=== PATIENT | female | born 2000 | race Two or more races ===

== ENCOUNTER 2025-02-18 20:18 | Emergency (ER) | payer MEDICAID, OTHER ==
[~2025-02-18] VITALS: Ht 162.6 cm; Wt 56.9 kg
[2025-02-18 21:04] VITALS: BP 122/76; PULSE 80; RESP 18; TEMP 98.7; O2SAT 98
[2025-02-18] MEDS: LET TOPICAL SOLN 5 ML TOP ONE (21:04)
[2025-02-18] MEDS ORDERED: DOXY100C4 PO (21:29)
--- NOTE | 2025-02-18 21:30 | ED.PDOC ---
History of Present Illness(SKN HPI Comments PT PRESENTED TO ED FOR LEFT POSTERIOR EAR SWELLING S/P EAR PIERCING X1-2 WEEKS AGO. REPORTS HEADACHE. DENIES FEVER, CHILLS, NAUSEA, OR VOMITING. 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 Information Source: Patient Mode of Arrival: Ambulatory Past Medical History PAST MEDICAL HISTORY: Denies Surgical History: Denies all surgeries APPLICATION SUPPORT LEAD History: No Pertinent APPLICATION SUPPORT LEAD History Family History Family History: Unknown Social History Smoker: Non-Smoker Alcohol: Denies ETOH Use Drugs: Denies Drug Use All Other Systems: Reviewed and Negative (see hpi) Physical Exam General Appearance: No Apparent Distress, Normal HEENT: Pharynx Normal, TMs Normal Neck: Full Range of Motion, Non-Tender Respiratory: Lungs Clear, No Respiratory Distress, Normal Breath Sounds Cardiovascular: No Murmur, Normal Peripheral Pulses, Regular Rate/Rhythm Breast Exam: Deferred Gastrointestinal: Non Tender, Soft Genitalia: Deferred Pelvic: Deferred Rectal: Deferred Extremities: Normal range of motion Musculoskeletal : Apperance: Normal Neurologic: Alert, No Motor Deficits, Normal Affect, Normal Mood, No Sensory Deficits Cerebellar Function: Normal Reflexes: NOT DONE Skin: Dry, Normal Color, Warm, Wounds (SIZE LESION BEHIND LEFT EARLOBE) Lymphatic: No Adenopathy Was a procedure done? Was a procedure done?: Yes Sedation Sedation?: No Informed consent obtained: Yes Incision and Drainage Incision and Drainage: Abscess Location BEHIND LEFT EARLOBE Anesthetic: Other (LET) Preparation: Betadine Incision and Wound: Pus, Blood Informed consent obtained: Yes Risks/benefits/alt described: Yes Notes PATIENT TOLERATED WELL MINIMAL BLOOD LOSS Differential Diagnosis (INTG) Differential Diagnosis: Cellulitis, Hematoma, Puncture Wound Differential Diagnosis: Abscess X-Ray, Labs, Meds, VS Vital Signs Date Time Temp Pulse Resp B/P (MAP) Pulse Ox O2 Delivery O2 Flow Rate FiO2 02/18/25 21:04 98.7 80 18 122/76 (91) 98 98.7 02/18/25 21:04 80 18 98 Room Air 02/18/25 20:19 98.1 87 16 124/90 98 98.1 Current Medications Medications (Trade) Dose Ordered Sig/Elissa Route Start Time Stop Time Status Last Admin Tetracaine/ Epinephrine/ Lidocaine 5 ml ONCE ONCE TOP 02/18/25 21:00 02/18/25 21:01 DC 02/18/25 21:04 Doxycycline Monohydrate (Vibramycin Tablet) 100 mg ONCE ONCE PO 02/18/25 21:45 02/18/25 21:42 DC 02/18/25 21:40 X-Ray, Labs, Meds, VS Comment SEE PROCEDURE NOTE Script trial of antibiotics . Advised to take medication as prescribed side effects discussed. Advised to follow up with his PCP in two days, urgent care, or back in the ER for wound re-evaluation. Advised to keep dressing on, and clean change twice daily. Patient was also advised to return to the ER for increasing pain, numbness, weakness, swelling, fever or chills. Patient indicates understanding and agrees with discharge plan of care. Time of 1ST Reevaluation: 20:23 Reevaluation 1ST: Unchanged Time of 2ND Reevaluation: 21:30 Reevaluation 2ND: Improved Patient Education/Counseling: Diagnosis, Treatment, Need For Follow Up Family Education/Counseling: No Family Present SEPSIS Sepsis Screen Date sepsis recognized/suspect: Feb 18, 2025 Time Sepsis recognized/suspect: 2022 Recent Procedure: No On Antibiotic Therapy: No Respiratory Rate >20: No Heart Rate >90: No Temp<36 C (96.8 F) or >38.3 C: No SBP <90 or MAP <65 mmHG: No New Acute Mental Status Change: No Is the patient on CPAP, BIPAP,: No Vital Signs Date Time Temp Pulse Resp B/P (MAP) Pulse Ox O2 Delivery O2 Flow Rate FiO2 02/18/25 21:04 98.7 80 18 122/76 (91) 98 98.7 02/18/25 21:04 80 18 98 Room Air 02/18/25 20:19 98.1 87 16 124/90 98 98.1 Medications Medications Dose Ordered Sig/Elissa Route Start Time Stop Time Status Last Admin Dose Admin Doxycycline Monohydrate 100 mg ONCE ONCE PO 02/18/25 21:45 02/18/25 21:42 DC 02/18/25 21:40 Tetracaine/ Epinephrine/ Lidocaine 5 ml ONCE ONCE TOP 12/5/25 21:00 02/18/25 21:01 DC 02/18/25 21:04 Departure 1 Departure Time of Disposition: 21:26 Impression: Primary Impression: Abscess of left earlobe Disposition: HOME / SELF CARE / HOMELESS Condition: Stable e-Prescriptions Doxycycline Hyclate (Doxycycline Hyclate) 100 Mg Cap 100 MG PO BID for 7 Days, #14 CAP Prov: SALVATORE SAGASTUME 02/18/25 Discharged With: Self Critical Care Note Critical Care Time?: No Stability Stability form required: SALVATORE Magallon Feb 18, 2025 21:30
[2025-02-18] MEDS: DOXYCYCLINE 100 MG TAB/CAP PO ONE (21:40)
== END 2025-02-18 21:30 | disposition home or self-care (01) ==
LOC: ER 20:18
DX: H60.02 Abscess of left external ear (principal); Z79.899 Other long term (current) drug therapy
CPT/HCPCS: 10060